=== PATIENT | female | born 1935 | race Caucasian/White ===

== ENCOUNTER 2018-03-10 07:11 | Observation (INO) | payer MEDICARE, OTHER ==
[2018-03-10] VITALS (11 sets, daily range): BP systolic 128–164; BP diastolic 58–71
[~2018-03-10] VITALS: Ht 160 cm; Wt 99.8 kg
--- NOTE | ~2018-03-10 | H ---
[address] [address] HISTORY AND PHYSICAL Name: JENNIFFER ALBA Room: [address] Chandan Devi#: [id number] Admission: 03/10/18 Attend Phys: Jordan Garcia MD, Discharge: 03/11/18 Date of : 39 Report #: [id number] THIS REPORT FOR: //name// Please refer to the History and Physical performed in the physician's office. By: [id number] Records Staff EVERT /BECKY
[~2018-03-10 07:11] MED LIST: ASPIRIN81 M2 PO; COZAAR 50 MG TA50 M2 PO; EFFIENT10 MG PO; GLUCOSAMINE HC500 MG PO; IBUPROFEN 200200 M1 PO; IMDUR 30 MG TAB30 M1 PO; NEXIUM40 MG PO; NITROGLYCERIN0.4 MG SUBLING; SIMVASTATIN40 MG PO; TORSEMIDE20 MG PO; VITAMIN D1000 UNI1 PO
[2018-03-10] MEDS ORDERED: PLAVIX 75 MG TA75 M1 PO (08:14)
[2018-03-10 08:17] LABS: HEMATOCRIT 40.9 % (37.0-47.0); HEMOGLOBIN 13.6 gm/dL (12.0-15.0); MCH 30.6 pg (26.0-34.0); MCHC 33.3 g/dL (28.0-37.0); MCV 91.9 fL (80.0-100.0); MPV 9.9 fl. (7.2-11.1); RBC 4.45 mil/uL (4.20-5.00)
[2018-03-10 08:27] LABS: APTT 26.1 Seconds (25.0-31.3); INR 1.1; PROTIME 10.9 Seconds (9.20-11.50)
[2018-03-10 08:32] LABS: ANION GAP 7 mmol/L (7-16); BUN 21 mg/dL (7-18); CALCIUM 9.5 mg/dL (8.5-10.1); CHLORIDE 103 mmol/L (98-107); CO2 29 mmol/L (21-32); CREATININE 1.2 mg/dL (0.6-1.3); GLUCOSE 149 mg/dL (70-99); POTASSIUM 3.8 mmol/L (3.5-5.1); SODIUM 139 mmol/L (136-145)
[2018-03-10 08:36] LABS: ALBUMIN 3.7 g/dL (3.4-5.0); ALKALINE PHOSPHATASE 88 U/L (46-116); CHOLESTEROL 131 mg/dL (<200); HDL CHOLESTEROL 42 mg/dL (>40); LDL CHOLESTEROL 49 mg/dL (<100); SGOT 27 U/L (15-37); SGPT 30 U/L (30-65); TC:HDL 3.1 Ratio (Not establshd); TOTAL PROTEIN 6.8 g/dL (6.4-8.2); TRIGLYCERIDE 201 mg/dL (<150); VLDL 40 mg/dL (<40)
[2018-03-10 08:54] LABS: SERUM ASSESSMENT Clear
[2018-03-11] VITALS: BP 167/81
[2018-03-11 04:00] VITALS: BP 132/81
--- NOTE | 2018-03-11 06:11 | NUR ---
PT ALERT ORIENTED. UP AD ANA IN ROOM. R GROIN DRSG D/I. SITE SOFT WITH NO BRUSING NOTED. TELEMETRY SHOWS SR. NS AT 100MLS/HR.
[2018-03-11 06:50] LABS: HEMATOCRIT 38.1 % (37.0-47.0); HEMOGLOBIN 12.7 gm/dL (12.0-15.0); MCH 30.5 pg (26.0-34.0); MCHC 33.3 g/dL (28.0-37.0); MCV 91.8 fL (80.0-100.0); MPV 9.7 fl. (7.2-11.1); RBC 4.15 mil/uL (4.20-5.00); RDW-CV 14.4 % (10.5-14.5); WBC 5.3 thou/uL (4.0-11.0)
[2018-03-11 07:35] VITALS: BP 177/84
[2018-03-11 07:45] LABS: ALBUMIN 3.5 g/dL (3.4-5.0); CREATININE 0.8 mg/dL (0.6-1.3); POTASSIUM 3.9 mmol/L (3.5-5.1); TOTAL BILIRUBIN 1.1 mg/dL (<0.1-1.0); TOTAL PROTEIN 6.5 g/dL (6.4-8.2); TROPONIN-I LEVEL 0.32 ng/mL (<0.06)
--- NOTE | 2018-03-11 09:37 | EKG ---
[place] [address] ELECTROCARDIOGRAM REPORT Name: OZJENNIFFER BANDA Room: [address] M.R.#: [id number] Admission: 03/10/18 Attend Phys: Jordan Garcia MD, Discharge: Date of : 39 Report #: [id number] THIS REPORT FOR: //name// [facility] Test Date: 2018-03-10 Test Time: 07:49:25 Pat Name: JENNIFFER ALBA Department: Room: [facility] Gender: F Masseur/Masseuse: [facility] : 1935 Requested By: Jordan Garcia Order Number: [id number] Reading MD: Rayshawn Forrest Measurements Intervals [place] Rate: 58 P: 48 NC: 181 QRS: -31 QRSD: 98 T: 83 QT: 437 QTc: 430 Interpretive Statements Sinus rhythm Abnormal R-wave progression, late transition LVH with secondary repolarization abnormality Compared to ECG 12/17/2015 08:25:18 Left ventricular hypertrophy now present Early repolarization now present T-wave abnormality no longer present Electronically Signed On 03-11-2018 9:37:29 CDT by Rayshawn Forrest [email or web address] <ELECTRONICALLY SIGNED> By: Rayshawn Forrest MD, [facility] 03/11/18 0937 0749 0749 Rayshawn Forrest MD, [facility] /EPI
--- NOTE | 2018-03-11 09:38 | EKG ---
[place] [address] ELECTROCARDIOGRAM REPORT Name: OZJENNIFFER BANDA Room: [address] M.R.#: [id number] Admission: 03/10/18 Attend Phys: Jordan Garcia MD, Discharge: Date of : 39 Report #: [id number] THIS REPORT FOR: //name// [facility] Test Date: 2018-03-10 Test Time: 11:13:05 Pat Name: JENNIFFER ALBA Department: Room: [facility] Gender: F Training Intern: [facility] : 1935 Requested By: Jordan Garcia Order Number: [id number] Reading MD: Rayshawn Forrest Measurements Intervals [place] Rate: 62 P: 24 AL: 185 QRS: -18 QRSD: 99 T: 98 QT: 432 QTc: 439 Interpretive Statements Sinus rhythm Consider right ventricular hypertrophy LVH with secondary repolarization abnormality Compared to ECG 12/17/2015 08:25:18 Left ventricular hypertrophy now present Early repolarization now present T-wave abnormality no longer present Electronically Signed On 03-11-2018 9:37:53 CDT by Rayshawn Forrest [email or web address] <ELECTRONICALLY SIGNED> By: Rayshawn Forrest MD, FACC 03/11/18 0937 1113 1113 Rayshawn Forrest MD, FAC /EPI
--- NOTE | 2018-03-11 09:41 | EKG ---
[place] [address] ELECTROCARDIOGRAM REPORT Name: OZJENNIFFER BANDA Room: [address] M.R.#: [id number] Admission: 03/10/18 Attend Phys: Jordan Garcia MD, Discharge: Date of : 39 Report #: [id number] THIS REPORT FOR: //name// [facility] Test Date: 2018-03-11 Test Time: 08:37:32 Pat Name: JENNIFFER ALBA Department: Room: [facility] Gender: F Molding Press Operator: : 1935 Requested By: Jordan Garcia Order Number: [id number] Reading MD: Rayshawn Forrest Measurements Intervals [place] Rate: 67 P: 26 NM: 183 QRS: -27 QRSD: 99 T: 131 QT: 367 QTc: 388 Interpretive Statements Sinus rhythm Consider right ventricular hypertrophy LVH with secondary repolarization abnormality Compared to ECG 12/17/2015 08:25:18 Left ventricular hypertrophy now present Early repolarization now present T-wave abnormality no longer present Electronically Signed On 03-11-2018 9:40:57 CDT by Rayshawn Forrest [email or web address] <ELECTRONICALLY SIGNED> By: Rayshawn Forrest MD, [facility] 03/11/18 0940 0837 0837 Rayshawn Forrest MD, [facility] /EPI
[2018-03-11] MEDS ORDERED: EFFIENT10 MG PO (10:24)
[2018-03-11] MEDS ORDERED: NITROGLYCERIN0.4 MG SUBLING (10:25)
[2018-03-11 10:26] VITALS: BP 177/84
--- NOTE | 2018-03-11 10:58 | NUR ---
PATIENT A&OX4, ROOM AIR, IV LEFT AC AND LEFT HAND SALINE LOCK. IV'S DISCONTINUED, CATHETER FULLY INTACT. UP AD ANA, STEADY GAIT. NO C/O PAIN/N/V. NO OTHER CONCERNS AT THIS TIME. REVIEWED DISCHARGE PAPERWORK WITH SPOUSE AT BEDSIDE, VERBALIZES UNDERSTANDING, ALL QUESTIONS AND CONCERNS ANSWERED. PATEINT LEFT UNIT AT 1050 AMBULATORY WITH NURSING STAFF AND SPOUSE. ALL BELONGINGS TAKEN WITH PATIENT. NOTHING LEFT BEHIND. APPROPRAITE AND COOPORATIVE WITH CARE.
--- NOTE | 2018-03-12 15:27 | D ---
[address] [address] DISCHARGE SUMMARY Name: JENNIFFER ALBA Bolivar Room: [address] Chandan Devi#: [id number] Admission: 03/10/18 Attend Phys: Jordan Garcia MD, Discharge: 03/11/18 Date of : 39 Report #: [id number] THIS REPORT FOR: //name// CC: Jordan Romero Nathan DATE OF SERVICE: 03/11/2018 FINAL DISCHARGE DIAGNOSES: 1. Abnormal nuclear stress test. 2. Coronary artery disease. 3. Status post stenting of the LAD on 03/10/2018. 4. Hypertension. 5. Hyperlipoproteinemia. 6. Type 2 diabetes. PROCEDURES: On 03/10/2018 --Left heart catheterization, left ventriculography, selective coronary arteriography, and stenting of the left anterior descending coronary artery. The patient is an 82-year-old female with known coronary artery disease and prior multivessel stenting. She presented with recent dyspnea but without chest discomfort. Nuclear stress test was abnormal with a significant induced ischemic burden. In the context of her known coronary artery disease and risk factor profile, I elected to proceed with cardiac catheterization on 03/10/2018, which revealed 80% proximal left mid LAD stenosis. I deployed one stent at that site with 0% residual narrowing and CHAVO 3 flow of the distal vessel. The patient did well post-procedurally with good hemostasis at the femoral site of catheterization. Lab revealed sodium 143, potassium 3.9, BUN 14, creatinine 0.8, hemoglobin 12.7, white blood cell count 5300 with 88,000 platelets. The patient ambulated in the hallways without difficulty. She was discharged home on enteric-coated aspirin 81 mg daily, vitamin D or cholecalciferol 1000 units daily, Nexium 40 mg daily, isosorbide mononitrate 30 mg daily, losartan 50 mg daily, Effient 10 mg daily, simvastatin 40 mg at bedtime, torsemide 20 mg daily. The patient is scheduled to return to see me on 04/08/2018 at [address] [place] [address] DISCHARGE SUMMARY Name: JENNIFFER ALBA Room: [address] Chandan Devi#: [id number] Admission: 03/10/18 Attend Phys: Jordan Garcia MD, Discharge: 03/11/18 Date of : 39 Report #: [id number] Thus, the patient is discharged to home in stable condition on the aforementioned medications with followup as iterated above. <ELECTRONICALLY SIGNED> By: Jordan Garcia MD, [facility] 03/12/18 1527 1732 1742Jolexii Garcia MD, FACC /nt
--- NOTE | 2018-03-15 12:14 | CARD ---
[address] [address] CARDIAC CATH REPORT Name: JENNIFFER ALBA Room: [address] Chandan Devi#: [id number] Admission: 03/10/18 Attend Phys: Jordan Garcia MD, Discharge: 03/11/18 Date of : 39 Report #: [id number] THIS REPORT FOR: //name// APPROVED REPORT Study performed: 03/10/2018 07:50:02 Patient Details Patient Status: Out-Patient Room #: The patient is a 82 year-old female Event Personnel Jordan Garcia C[employer] And R[employer] Services Manager, Nimo Singh Cable Splicer, Nick Nichole Haley, Jessica RTR Monitor Procedures Performed Art Access - R femoral artery* Left Heart Cath w/or w/o Coronaries [facility] w/wo Plasty Single LAD PTCA Single Vessel LAD PCISINGLE Indication Dyspnea, Positive stress test Risk Factors Hypercholesterolemia, Hypertension Previous Procedures/Diagnoses Previous PCI Admission/Lab Medications/Medications given during procedure Aspirin, Platelet Aff. Inhib., Angiomax bolus and infusion Procedure Narrative The patient was brought electively to the Cardiac Catheterization Laboratory and was prepped and draped in a sterile manner. The right femoral was infiltrated with 2% Lidocaine subcutaneous anesthesia. A Harvey 6 FR sheath was inserted into the right femoral artery. Coronary angiography was performed using coronary diagnostic catheters. The right coronary system was accessed and visualized with a Diagnostic 6 FR JR 4 catheter. The left coronary system was accessed and visualized with a Diagnostic 6FR JL 4 catheter. The left ventricle was accessed and visualized with a Diagnostic 6 FR STRAIGHT PIGRTAIIL catheter. Left ventricular/Aortic Valve gradient assessed . An aortogram of the ENG was performed. The patient tolerated the procedure well and there [place] [address] CARDIAC CATH REPORT Name: JENNIFFER ALBA Room: [address] Chandan Devi#: [id number] Admission: 03/10/18 Attend Phys: Jordan Garcia MD, Discharge: 03/11/18 Date of : 39 Report #: [id number] procedure. There was no hematoma. Intraoperative Conscious Sedation Sedation start time: 9:51 Case end Time: 10:48 Fentanyl 25 mcg Versed 1 mg Fluoro Time: 8.4 minutes Dose: DAP [id number] cGycm2 111 mGy Contrast Type and Amount: Visipaque 260 ml Diagnostic Cath Left Main 0% narrowing LAD 80% proximal stenosis Diagonal 2 80% mid vessel stenosis this being a small vessel Circumflex 30% mid vessel narrowing with widely patent patent stent beyond this and with tandem 30% proximal and mid first marginal narrowings Right Coronary Dominant vessel with 30% mid vessel narrowing Hemodynamics The aortic pressure is 125/62 mmHg with a mean of 42 mmHg. The left ventricular pressure is 124/1 mmHg with a mean of mmHg. The left ventricular end diastolic pressure is 6 mmHg. Pullback from the left ventricle to the aorta revealed no gradient across the aortic valve. PCI Technique Lesion Percutaneous coronary intervention was performed on the proximal left anterior descending artery segment. The lesion stenosis prior to intervention was 90% with CHAVO 3 flow. A 6FR XB 3.0 100CM Guide Catheter was used to engage the ostium. A ProwaterFlex 180CM Interventional Guidewire was used to cross the lesion. BALLOON DILATION A Balloon catheter Trek RX 2.75 X 12 was inserted and inflated up to 12.00atm for 10seconds. Additional Inflation: 16.00atm for 10seconds. STENT DEPLOYMENT A drug-eluting stent Xience Alpine RX 3.0X23 was inserted and inflated up to 12.00atm for 10seconds. Additional Inflation: 15.00atm for 10seconds. Additional Inflation: 17.00atm [place] 12[place]. [place] [address] CARDIAC CATH REPORT Name: JENNIFFER ALBA Room: [address] Shandra#: [id number] Admission: 03/10/18 Attend Phys: Jordan Garcia MD, Discharge: 03/11/18 Date of : 39 Report #: [id number] POST STENT DEPLOYMENT BALLOON DILATION A Balloon catheter NC Trek RX 3.25 X 12 was inserted and inflated up to 12.00atm for 6seconds. Additional Inflation: 15.00atm for 7seconds. Additional Inflation: 14.00atm for 9seconds. Final angiography reveals 0 % stenosis with CHAVO 3 flow. PCI Technique Lesion 2 Percutaneous Coronary Intervention was performed on the proximal left anterior descending artery segment. Conclusion #1 significant coronary artery disease characterized by the following: A 90% proximal LAD stenosis with 80% mid second diagonal stenosis B 30% mid circumflex narrowing with a stent beyond this point; there were tandem 30% proximal and mid first marginal narrowings C dominant right coronary artery with 30% mid vessel narrowing #2 normal left ventricular systolic function, estimate ejection fraction being 60% #3 normal left-sided hemodynamics study #4 successful percutaneous coronary intervention with deployment of drug-eluting stent at the site of 90% proximal LAD stenosis with 0% residual narrowing and CHAVO-3 flow the distal vessel Recommendations Cardiac Risk Reduction Program Aggressive Medical Therapy Medications Administered Aspirin (any) Prasugrel Diagnostic Cath Approved by: Jordan Garcia MD Date/Time: 03/15/2018 12:13:12 <ELECTRONICALLY SIGNED> By: Jordan Garcia MD, [facility] 03/15/18 1213 1213 1213Jordan Garcia MD, FAC /INF
--- NOTE | 2018-03-20 16:16 | H ---
[address] [address] HISTORY AND PHYSICAL Name: JENNIFFER ALBA Room: [address] Chandan Devi#: [id number] Admission: 03/10/18 Attend Phys: Jordan Garcia MD, Discharge: 03/11/18 Date of : 39 Report #: [id number] THIS REPORT FOR: //name// CC: Jordan Romero Nathan DATE OF SERVICE: 03/10/2018 HISTORY OF PRESENT ILLNESS: The patient is a very pleasant 82-year-old female with a history of hypertension, hypercholesterolemia, and coronary artery disease. She is status post prior stenting of the circumflex. Recently, she has noted some dyspnea, but no chest discomfort with activity. Her activity pattern has been quite limited. She has been compliant with antiplatelet, antihypertensive and lipid-lowering therapy without side effects of same. Confluent medical regimen has included aspirin 81 mg daily, vitamin D 1000 units daily, clopidogrel 75 mg daily, Nexium 40 mg daily, ibuprofen 200 mg b.i.d., Imdur 30 mg daily, losartan 50 mg daily, simvastatin 40 mg at bedtime, and torsemide 20 mg daily. PAST MEDICAL HISTORY: Remarkable for hypertension, hypercholesterolemia and mild weight excess. SOCIAL HISTORY: The patient is . She is a nonsmoker. PHYSICAL EXAMINATION: GENERAL: Reveals a modestly overweight elderly female who is alert, cheerful, in no acute distress. VITAL SIGNS: Blood pressure 140/70, pulse rate 65, respirations 18 per minute. NECK: Jugular venous pressure is normal. CHEST: Clear. CARDIAC: Reveals normal first and second heart sounds with a soft systolic murmur without rubs or gallops. ABDOMEN: Modestly obese. EXTREMITIES: Without edema, with intact femoral, pedal and radial pulses. DIAGNOSTIC DATA: Recent nuclear stress test was abnormal with inducible anterior ischemia. IMPRESSION: 1. Abnormal nuclear stress test with inducible anterior ischemia. 2. Coronary artery disease. 3. Status post prior percutaneous coronary intervention of the circumflex. 4. Hypertension. 5. [place] [address] HISTORY AND PHYSICAL Name: OZJENNIFFER BANDA Room: [address] Chandan Devi#: [id number] Admission: 03/10/18 Attend Phys: Jordan Garcia MD, Discharge: 03/11/18 Date of : 39 Report #: [id number] RECOMMENDATIONS: Given the aforementioned clinical scenario with known coronary artery disease, prior stenting and an abnormal nuclear stress test, the patient is admitted for cardiac catheterization on 03/10/2018. <ELECTRONICALLY SIGNED> By: Jordan Garcia MD, FACC 03/20/18 1616 1137 1159Jordan Garcia MD, [facility] /nt
[2018-04-17] MEDS ORDERED: DILTIAZEM HCL90 MG PO (10:17)
== END 2018-03-11 10:50 | disposition home or self-care (01) ==
LOC: M.CL 07:11 → M.2W 11:00 → M.TBA-CV 11:00 → M.2W 12:40
PROVIDERS: ADMIT Internal Medicine
DX: I25.119 Atherosclerotic heart disease of native coronary artery with unspecified angina pectoris (principal); I10 Essential (primary) hypertension; E78.5 Hyperlipidemia, unspecified; E11.9 Type 2 diabetes mellitus without complications; E78.00 Pure hypercholesterolemia, unspecified; Z82.49 Family history of ischemic heart disease and other diseases of the circulatory system; Z87.891 Personal history of nicotine dependence; R79.1 Abnormal coagulation profile

== ENCOUNTER → 2018-04-17 | Outpatient (CLI) | payer MEDICARE, OTHER ==
[~2018-04-17] VITALS: Ht 160 cm; Wt 88.5 kg
[~2018-04-17] MED LIST changes: +DILTIAZEM HCL90 MG PO; +PLAVIX 75 MG TA75 M1 PO
[2018-04-17 09:53] LABS: HEMATOCRIT 39.8 % (37.0-47.0); HEMOGLOBIN 13.4 gm/dL (12.0-15.0); MCH 31.3 pg (26.0-34.0); MCHC 33.6 g/dL (28.0-37.0); MPV 9.7 fl. (7.2-11.1); RBC 4.28 mil/uL (4.20-5.00); RDW-CV 15.7 % (10.5-14.5); WBC 7.5 thou/uL (4.0-11.0)
[2018-04-17 10:03] LABS: CALCIUM 9.5 mg/dL (8.5-10.1); CREATININE 0.9 mg/dL (0.6-1.3); POTASSIUM 3.5 mmol/L (3.5-5.1)
[2018-04-17 10:05] LABS: APTT 27.5 Seconds (25.0-31.3); INR 1.1; PROTIME 10.8 Seconds (9.20-11.50)
[2018-04-17 10:08] LABS: ALBUMIN 3.7 g/dL (3.4-5.0); TOTAL BILIRUBIN 0.7 mg/dL (<0.1-1.0); TOTAL PROTEIN 6.6 g/dL (6.4-8.2)
--- NOTE | 2018-04-17 12:27 | H ---
[place] [address] HISTORY AND PHYSICAL Name: JENNIFFER ALBA Bolivar Room: [facility] Shandra#: [id number] Admission: 04/17/18 Attend Phys: Jordan Garcia MD, Discharge: Date of : 39 Report #: [id number] THIS REPORT FOR: //name// CC: Jordan Romero Nathan DATE OF SERVICE: 04/17/2018 The patient to be admitted to [facility] on 04/17/2018 and taken to the catheterization laboratory for placement of a pacing system. HISTORY OF PRESENT ILLNESS: The patient is a very pleasant 82-year-old female with a history of complex coronary artery disease, status post multiple prior stents and most recently to the LAD 5 weeks ago. She is on dual antiplatelet therapy in that context. She has a history of palpitations and has been noted to have short periods of atrial fibrillation with tachycardic response. In this setting, she has been placed on low-dose beta blockade and diltiazem extended release. A Holter monitor was placed in this setting, and it demonstrated both supraventricular and ventricular arrhythmias as well as atrioventricular block. She has short runs of atrial fibrillation with rates of 130-140 and runs of nonsustained ventricular tachycardia 3-9 beats in length. During the monitoring phase, she also demonstrated periods of high-grade atrioventricular conduction block with multiple blocked P waves and pauses of 3-5.1 seconds. She experienced no syncope during these episodes, but the magnitude of pause was significant, maximally and 5.1 seconds. PAST MEDICAL HISTORY: Remarkable for hyperlipidemia, hypertension, moderate weight excess. MEDICATIONS: Have included aspirin 81 mg daily, vitamin D 1000 units daily, Imdur 30 mg daily, losartan 25 mg daily, metoprolol 25 mg b.i.d., p.r.n. sublingual nitroglycerin, Effient 10 mg daily, simvastatin 40 mg daily, torsemide 20 mg daily and diltiazem extended release 180 mg daily. SOCIAL HISTORY: The patient is a former smoker. She is . REVIEW OF SYSTEMS: Remarkable for the following: She notes palpitations. She has a history of some dyspnea on exertion. She denies recent chest pain. PHYSICAL EXAMINATION: GENERAL: Reveals an elderly female who is alert, appropriate, in no acute distress. VITAL SIGNS: Blood pressure is 140/70, pulse rate is 75 and respirations are 18 [place] [address] HISTORY AND PHYSICAL Name: JENNIFFER ALBA Room: [facility]#: [id number] Admission: 04/17/18 Attend Phys: Jordan Garcia MD, Discharge: Date of : 39 Report #: [id number] per minute. NECK: Jugular venous pressure is normal with carotids being 1-2+. CHEST: Clear. CARDIAC: Reveals normal first and second heart sounds with a soft systolic murmur. ABDOMEN: Mildly obese. EXTREMITIES: Satisfactorily perfused without significant edema. IMPRESSION: 1. High-grade atrioventricular conduction block with periods of 3-5.1 second pauses noted on the monitoring phase. 2. Paroxysmal atrial fibrillation with tachycardic responses. 3. Coronary artery disease, status post prior stenting and more recent stenting of the left anterior descending. 4. Hypertension. 5. Hyperlipidemia. 6. Weight excess. RECOMMENDATIONS: Given the magnitude of atrioventricular conduction block and the pauses of 5.1 seconds, I would recommend proceeding with a permanent dual chamber pacing. She will continue to require some rate modulating agents for the atrial fibrillation and may require anticoagulation subsequently, but at this time, I would recommend urgent placement of a permanent dual chamber pacemaker system. <ELECTRONICALLY SIGNED> By: Jordan Garcia MD, FACC 04/17/18 1227 1617 1704Jordan Garcia MD, FACC /nt
[2018-04-17 12:49] VITALS: BP 113/56
[2018-04-17 13:10] VITALS: BP 108/54
--- NOTE | 2018-04-17 16:39 | EKG ---
[place] [address] ELECTROCARDIOGRAM REPORT Name: PARTHJENNIFFER Room: [facility]#: [id number] Admission: 04/17/18 Attend Phys: Jordan Garcia MD, Discharge: Date of : 39 Report #: [id number] THIS REPORT FOR: //name// [facility] Test Date: 2018-04-17 Test Time: 10:54:32 Pat Name: JENNIFFER ALBA Department: Room: Gender: F Services Tech: : 1935 Requested By: Tyrone Hart Order Number: [id number] MD: Jordan Garcia Measurements Intervals [place] Rate: 53 P: 13 [place]: 187 QRS: -30 QRSD: 97 T: 50 QT: 348 QTc: 327 Interpretive Statements Sinus rhythm leftward QRS axis Compared to ECG 03/11/2018 08:37:32 No significant changes Electronically Signed On 04-17-2018 16:39:03 CDT by Jordan Garcia [email or web address] <ELECTRONICALLY SIGNED> By: Jordan Garcia MD, [facility] 04/17/18 1639 1054 1054 Jordan Garcia MD, FACC /EPI
--- NOTE | 2018-04-22 10:51 | CARD ---
[address] [address] CARDIAC CATH REPORT Name: JENNIFFER ALBA [id number] Admission: 04/17/18 Attend Phys: Jordan Garcia MD, Discharge: Date of : 39 Report #: [id number] THIS REPORT FOR: //name// APPROVED REPORT Study performed: 04/17/2018 10:33:57 Patient Status: Out-Patient Room #: Event Personnel: Tyrone Hart Quarter Backer, Mercedez Agarwal RN Visual Designer, Gareth Velazquez (R) Monitor, Yasmin Mistry RTR Scrub Exam: Insertion of Dual Chamber Permanent Pacemaker Indications: Sick Sinus Syndrome/Tachy Tee Syndrome The patient is a 82 year-old female with a history of atrial fibrillation and sick sinus syndrome. Conscious Sedation Start time: 11:36 End Time: 12:17 Fentanyl 25 mcg Versed 2 mg Implanted Devices: EventBoardronik Eluna 8 DR T pro-MRI, model #631909, serial #[id number] dual-chamber pulse generator. Biotronik Solia S 53, model #478975, serial #[id number] ventricular lead. Biotronik Solia S 45, model #379745, serial #[id number] atrial lead. Biotronik Solia S 45, model #684559, serial #[id number] atrial lead. Procedure The patient underwent informed consent. We discussed the details of the procedure including the risks, which include, but not limited to bleeding, infection, vascular damage, cardiac perforation, and pneumothorax. After informed consent was obtained the patient was brought to the interventional radiology lab. The area of the left chest was prepped and draped in sterile fashion. Local anesthesia was achieved with 1% lidocaine. Next after an initial incision was made a device pocket was formed over the left pectoralis muscle using electrocautery and blunt dissection. Next the left subclavian vein was accessed with a micropuncture kit and ultimately a safety [place] [address] CARDIAC CATH REPORT Name: PARTHJENNIFFER L Room: [facility]#: [id number] Admission: 04/17/18 Attend Phys: Jordan Garcia MD, Discharge: Date of : 39 Report #: [id number] right atrium under fluoroscopic guidance. The micropuncture kit was utilized a second time to access the left subclavian vein a second time and a second safety J guidewire advanced to the right atrium under fluoroscopic guidance. Next a 7 Ukrainian tear-away introducer was advanced over one of the guidewires. The dilator and guidewire were removed and a ventricular lead advanced to a secure position within the right ventricular apex. The lead was actively fixed. Sensing and thresholds were checked and deemed to be satisfactory. There was no evidence of diaphragmatic stimulation with maximum output pacing. The tear-away introducer was then removed. Next a second 7 Ukrainian tear-away introducer was advanced over the remaining guidewire. The dilator and guidewire were removed and an atrial lead advanced to a secure position within the right atrial appendage. The lead was actively fixed. Sensing and thresholds were checked and deemed to be satisfactory. There was no phrenic nerve stimulation with maximum output pacing. The tear-away introducer was then removed. Next after assuring adequate slack the atrial and ventricular leads were then secured within the device pocket using the designated cuffs and 0 silk suture. The pocket was then flushed with antibiotic solution. Next a dual-chamber pulse generator was attached to the atrial and ventricular leads. The redundant leads and generator were placed within the device pocket. The deep tissue was closed with interrupted stitches of 2-0 Vicryl suture. The skin incision was then closed with a single subcuticular stitch of 4-0 Vicryl. Several Steri-Strips were placed across the incision. A sterile Telfa dressing was then covered with a Tegaderm. The patient tolerated the procedure well without complication. Electrode Parameters P Wave: 3.20 mV R Wave: 10.10 mV Atrial Threshold: 0.8 V at 0.40 ms Ventricular Threshold: 0.6 V at 0.40 ms Atrial Resistance: 487 ohms Ventricular Resistance: 955 Complications The patient tolerated the procedure well and there were no complications associated with the procedure. Findings Mode DDD/CLS. Lower rate 60 bpm. Upper tracking rate [address] [place] [address] CARDIAC CATH REPORT Name: JENNIFFER ALBA Bolivar Room: [facility] Devi#: [id number] Admission: 04/17/18 Attend Phys: Jordan Garcia MD, Discharge: Date of : 39 Report #: [id number] Conclusion 1. Atrial for ablation with slow ventricular response. 2. Severe symptomatically bradycardia. 3. Severe pauses and ventricular response to atrial fibrillation. 4. Successful placement of a dual-chamber pacemaker without complication. Recommendations 1. Follow-up site check in one week. 2. Follow-up device interrogation one month. <ELECTRONICALLY SIGNED> By: Tyrone Hart MD, FACC 04/22/18 1050 [id number] 49Micarthur Hart MD, FACC /INF
== END | disposition home or self-care (01) ==
LOC: M.CL 09:10
PROVIDERS: Internal Medicine Cardiovascular Disease
DX: I49.5 Sick sinus syndrome (principal); I48.91 Unspecified atrial fibrillation; I10 Essential (primary) hypertension; I25.10 Atherosclerotic heart disease of native coronary artery without angina pectoris; E78.5 Hyperlipidemia, unspecified; M19.90 Unspecified osteoarthritis, unspecified site; Z98.890 Other specified postprocedural states; Z95.5 Presence of coronary angioplasty implant and graft; Z96.641 Presence of right artificial hip joint; Z96.652 Presence of left artificial knee joint; Z87.891 Personal history of nicotine dependence; Z79.82 Long term (current) use of aspirin; Z79.899 Other long term (current) drug therapy